=== PATIENT | male | born 1960 | race American Indian/Alaskan Native ===

== ENCOUNTER 2019-09-30 17:55 | Emergency (ER) | payer SELFPAY ==
--- NOTE | 2019-09-30 18:44 | Emergency Department Report ---
ED Syncope HPI - General Chief Complaint: Syncope Stated Complaint: SYNCOPAL EPISODE Time Seen by Provider: 09/30/19 18:34 - History of Present Illness Initial Comments: Patient is 58 years old male with history of hypertension. Patient brought to the emergency room via EMS for evaluation of one episode of syncope. Patient stated that he was standing when he felt lightheaded and then he fell landed on his left side. Patient is complaining of left hip pain. Patient denied any chest pain or shortness of breath. He also denied any headache, neck pain, weakness numbness or tingling sensation. Patient stated that his syncope resolved now. Patient found to have a blood pressure of 182/108. Patient stated that he is out of his blood pressure medication which is amlodipine 10 mg. Timing/Prior Episodes: no prior history, single episode today Precipitating Factors: Positive: lightheadedness Context: standing Loss of Consciousness: no loss of consciousness Current Symptoms: back to normal - Related Data Allergies/Adverse Reactions: Allergies No Known Allergies Allergy (Unverified 09/30/19 18:26) Home Medications: Ambulatory Orders hydroCHLOROthiazide [Hydrochlorothiazide] 10 mg PO DAILY 09/30/19 ED Review of Systems ROS: Stated complaint: SYNCOPAL EPISODE Other details as noted in HPI Comment: All other systems reviewed and negative Constitutional: denies: chills, fever Respiratory: denies: cough, shortness of breath, SOB with exertion Cardiovascular: denies: chest pain, palpitations Gastrointestinal: denies: abdominal pain, nausea, vomiting, diarrhea, constipation, hematemesis, melena, hematochezia Musculoskeletal: denies: back pain Neurological: vertigo. denies: headache, weakness, numbness, paresthesias, confusion, abnormal gait ED Past Medical Hx - Past Medical History Previous Medical History?: Yes Hx Hypertension: Yes - Surgical History Past Surgical History?: No - Social History Smoking Status: Current Every Day Smoker Substance Use Type: None - Medications Home Medications: Home Medications Medication Instructions Recorded Confirmed Last Taken Type hydroCHLOROthiazide 10 mg PO DAILY 09/30/19 09/30/19 Unknown History [Hydrochlorothiazide] ED Physical Exam - General Limitations: No Limitations General appearance: alert, in no apparent distress - Head Head exam: Present: atraumatic, normocephalic, normal inspection - Eye Eye exam: Present: normal appearance, PERRL - ENT ENT exam: Present: normal exam, normal orophraynx, mucous membranes moist - Neck Neck exam: Present: normal inspection, full ROM. Absent: tenderness, meningismus, lymphadenopathy, thyromegaly - Respiratory Respiratory exam: Present: normal lung sounds bilaterally - Cardiovascular Cardiovascular Exam: Present: regular rate, normal rhythm, normal heart sounds - GI/Abdominal GI/Abdominal exam: Present: soft, normal bowel sounds. Absent: distended, tenderness, guarding, rebound, rigid, organomegaly, mass, bruit, pulsatile mass, hernia - Extremities Exam Extremities exam: Present: normal inspection, full ROM, tenderness (Left hip tenderness.), normal capillary refill. Absent: pedal edema, joint swelling, calf tenderness - Back Exam Back exam: Present: normal inspection, full ROM. Absent: CVA tenderness (R), CVA tenderness (L), muscle spasm - Neurological Exam Neurological exam: Present: alert, oriented X3, CN II-XII intact, reflexes normal. Absent: motor sensory deficit - Psychiatric Psychiatric exam: Present: normal mood - Skin Skin exam: Present: warm, intact, normal color ED Course Vital Signs 09/30/19 09/30/19 18:22 19:24 Temperature 98.7 F 98.2 F Pulse Rate 96 H 74 Respiratory 20 16 Rate Blood Pressure 182/108 Blood Pressure 132/84 [Left] O2 Sat by Pulse 98 98 Oximetry ED Medical Decision Making - Lab Data Result diagrams: 09/30/19 18:43 09/30/19 18:43 - EKG Data -: EKG Interpreted by [place] EKG shows normal: sinus rhythm Rate: normal - EKG Data Interpretation: no acute changes - Radiology Data Radiology results: report reviewed - Medical Decision Making Patient is 58 years old male with history of hypertension. Patient brought to the emergency room via EMS for evaluation of one episode of syncope. Patient stated that he was standing when he felt lightheaded and then he fell landed on his left side. Patient is complaining of left hip pain. Patient denied any chest pain or shortness of breath. He also denied any headache, neck pain, weakness numbness or tingling sensation. Patient stated that his syncope resolved now. Patient found to have a blood pressure of 182/108. Patient stated that he is out of his blood pressure medication which is amlodipine 10 mg. Patient remained stable. Labs reviewed and is unremarkable. CT brain is negative for acute finding. Left hip x-ray showed advanced degenerative disease. Patient given morphine and Zofran in the ER. Patient symptoms improved. Patient advised to follow-up with orthopedics, Dr. Cui in the next 2 to 3 days for further management. Critical care attestation.: If time is entered above; I have spent that time in minutes in the direct care of this critically ill patient, excluding procedure time. ED Disposition Clinical Impression: Syncope, Left hip pain, Hypertension Disposition: TO HOME OR SELFCARE Is pt being admited?: No Condition: Stable Instructions: Syncope (ED), Hypertension (ED), Osteoarthritis (ED) Referrals: PRIMARY CAREMD [Primary Care Provider] - 3-5 Days ALEISHA CUI MD [Staff Physician] - 3-5 Days
[2019-09-30 18:59] LABS: Basophils % (Auto) 0.6 % (0.0-1.8); Eosinophils # (Auto) 0.1 K/mm3 (0.0-0.4); Eosinophils % (Auto) 1.7 % (0.0-4.3); Hematocrit 43.1 % (35.5-45.6); Hemoglobin 14.6 gm/dl (11.8-15.2); Lymphocytes # (Auto) 1.2 K/mm3 (1.2-5.4); Lymphocytes % (Auto) 18.2 % (13.4-35.0); Mean Corpuscular HGB Conc 34 % (32-34); Mean Corpuscular Volume 84 fl (84-94); Monocytes # (Auto) 0.5 K/mm3 (0.0-0.8); Platelet Count 142 K/mm3 (140-440); Red Blood Count 5.14 M/mm3 (3.65-5.03); Red Cell Distribution Width 15.1 % (13.2-15.2)
[2019-09-30 19:20] LABS: Alanine Aminotransferase 14 units/L (7-56); Albumin 4.4 g/dL (3.9-5); BUN/Creatinine Ratio 13; Blood Urea Nitrogen 12 mg/dL (9-20); Calcium 9.1 mg/dL (8.4-10.2); Hemolysis Index 7
--- NOTE | 2019-09-30 19:24 | XRay Report ---
LEFT HIP 2 VIEWS INDICATION / CLINICAL INFORMATION: Left hip pain. COMPARISON: None available. FINDINGS: BONES / JOINT(S): There are advanced degenerative changes involving the left hip, more prominent supe riorly. There are also moderately advanced degenerative changes involving the right hip. I see no marisol dence of fracture, dislocation or destructive lesion. There are moderate degenerative changes in the lower lumbar spine. SOFT TISSUES: No significant abnormality. ADDITIONAL FINDINGS: None. IMPRESSION: Advanced degenerative changes involving the left hip with moderately advanced degenerativ e changes involving the right hip. Moderate lower lumbar spondylosis. Signer Name: Tariq Naranjo MD Signed: 09/30/2019 7:19 PM Workstation Name: [id number]
--- NOTE | 2019-09-30 20:08 | Cat Scan Report ---
CT head/brain wo con INDICATION / CLINICAL INFORMATION: 58 years Male; Syncope. TECHNIQUE: Routine CT head without contrast. All CT scans at this location are performed using CT dos e reduction for ALARA by means of automated exposure control. COMPARISON: None. FINDINGS: BRAIN / INTRACRANIAL CONTENTS: The brain appears to demonstrate appropriate attenuation for age. The ventricular system is within normal limits in size and configuration. There is no clear CT evidence o f acute intracranial hemorrhage or significant mass effect. ORBITS: No significant abnormality of visualized orbits. SINUSES / MASTOIDS: No significant abnormality the visualized paranasal sinuses or mastoid air cells. CRANIOCERVICAL JUNCTION: No significant abnormality. ADDITIONAL FINDINGS: None. IMPRESSION: 1. The CT the brain appears unremarkable for age without evidence of acute intracranial hemorrhage. Signer Name: Lavelle Rodriguez MD Signed: 09/30/2019 8:04 PM Workstation Name: [id number]
[2019-09-30] MEDS ORDERED: MORPHINE 4 MG/1 ML INJ IM ONE (20:39)
[2019-09-30] MEDS ORDERED: ONDANSETRON 4 MG/2 ML INJ IM ONE (20:39)
[2019-09-30] MEDS ORDERED: MORPHINE 4 MG/1 ML INJ ONE (20:41)
[2019-09-30] MEDS ORDERED: ONDANSETRON 4 MG/2 ML INJ ONE (20:41)
[2019-09-30 20:58] VITALS: BP 162/96
== END 2019-09-30 21:39 | disposition home or self-care (01) ==
LOC: ED 17:55
DX: R55 Syncope and collapse (principal); M25.552 Pain in left hip; I10 Essential (primary) hypertension; F17.200 Nicotine dependence, unspecified, uncomplicated; Z79.899 Other long term (current) drug therapy
CPT/HCPCS: 36415; 70450; 73502; 80053; 84484; 85025; 93005; 96372; 99285; J2270; J2405

== ENCOUNTER 2020-07-07 11:27 | Outpatient (CLI) | payer OTHER ==
[2020-07-07 12:11] LABS: Basophils # (Auto) 0.1 K/mm3 (0.0-0.1); Basophils % (Auto) 0.8 % (0.0-1.8); Eosinophils # (Auto) 0.2 K/mm3 (0.0-0.4); Eosinophils % (Auto) 2.4 % (0.0-4.3); Hematocrit 44.8 % (35.5-45.6); Hemoglobin 15.8 gm/dl (11.8-15.2); Lymphocytes # (Auto) 2.4 K/mm3 (1.2-5.4); Lymphocytes % (Auto) 30.2 % (13.4-35.0); Mean Corpuscular HGB Conc 35 % (32-34); Mean Corpuscular Volume 85 fl (84-94); Monocytes # (Auto) 0.6 K/mm3 (0.0-0.8); Monocytes % (Auto) 7.8 % (0.0-7.3); Platelet Count 168 K/mm3 (140-440); Red Cell Distribution Width 15.3 % (13.2-15.2)
[2020-07-07 12:34] LABS: Alanine Aminotransferase 15 units/L (7-56); Albumin 4.8 g/dL (3.9-5); BUN/Creatinine Ratio 15; Blood Urea Nitrogen 20 mg/dL (9-20); Calcium 9.5 mg/dL (8.4-10.2); Chol/HDL Ratio 4.52 %; HDL Cholesterol 38 mg/dL (40-59); Hemolysis Index 5; LDL Cholesterol,Direct 123 mg/dL (50-130)
== END 2020-07-07 11:28 | disposition home or self-care (01) ==
LOC: LAB 11:27
PROVIDERS: ATTEND Internal Medicine
DX: Z00.00 Encounter for general adult medical examination without abnormal findings (principal); Z13.220 Encounter for screening for lipoid disorders; Z13.1 Encounter for screening for diabetes mellitus; Z13.29 Encounter for screening for other suspected endocrine disorder; E55.9 Vitamin D deficiency, unspecified; R39.11 Hesitancy of micturition
CPT/HCPCS: 36415; 80053; 80061; 82306; 83036; 84153; 84443; 85025

== ENCOUNTER 2020-11-23 13:06 | Outpatient (CLI) | payer OTHER ==
--- NOTE | 2020-11-23 15:13 | XRay Report ---
BILATERAL KNEE 1 VIEW(S) INDICATION / CLINICAL INFORMATION: PAIN IN UNSPECIFIED KNEE COMPARISON: None available. FINDINGS: BONES / JOINT(S): No acute fracture or subluxation. 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 SOFT TISSUES: No significant abnormality. ADDITIONAL FINDINGS: None. Signer Name: Raúl Mckenzie MD Signed: 11/23/2020 3:09 PM Workstation Name: [id number]
== END 2020-11-23 13:07 | disposition home or self-care (01) ==
LOC: XRAY 13:06
PROVIDERS: ATTEND Orthopaedic Surgery
DX: M17.0 Bilateral primary osteoarthritis of knee (principal)
CPT/HCPCS: 73565

== ENCOUNTER 2021-01-11 10:33 | Outpatient (CLI) | payer OTHER ==
[2021-01-11 11:43] LABS: Chol/HDL Ratio 4.67 %
== END 2021-01-11 10:34 | disposition home or self-care (01) ==
LOC: LAB 10:33
PROVIDERS: ATTEND Internal Medicine
DX: R73.03 Prediabetes (principal); E66.9 Obesity, unspecified
CPT/HCPCS: 36415; 80061; 83036

== ENCOUNTER 2021-04-15 09:19 | Outpatient (CLI) | payer OTHER ==
--- NOTE | 2021-04-15 10:24 | XRay Report ---
PELVIS 1 VIEW(S) INDICATION / CLINICAL INFORMATION: M16.0 COMPARISON: 08/14/2020 FINDINGS: BONES / JOINT(S): No acute fracture or subluxation. Patient is status post left total hip arthroplast y. No hardware complication. There is severe degenerative joint disease of the right hip. There is al so degenerative facet and disc disease lower lumbar spine. SOFT TISSUES: No significant abnormality. ADDITIONAL FINDINGS: None. Signer Name: Jose Shetty DO Signed: 04/15/2021 10:19 AM Workstation Name: [id number]
== END 2021-04-15 09:20 | disposition home or self-care (01) ==
LOC: XRAY 09:19
PROVIDERS: ATTEND Orthopaedic Surgery
DX: M16.0 Bilateral primary osteoarthritis of hip (principal); M47.816 Spondylosis without myelopathy or radiculopathy, lumbar region
CPT/HCPCS: 72170

== ENCOUNTER 2021-05-06 10:59 | Outpatient (CLI) | payer OTHER ==
[2021-05-06 11:26] LABS: Basophils % (Auto) 0.6 % (0.0-1.8); Eosinophils # (Auto) 0.2 K/mm3 (0.0-0.4); Hematocrit 45.4 % (35.5-45.6); Hemoglobin 14.8 gm/dl (11.8-15.2); Lymphocytes # (Auto) 1.7 K/mm3 (1.2-5.4); Lymphocytes % (Auto) 28.3 % (13.4-35.0); Mean Corpuscular HGB Conc 33 % (32-34); Mean Corpuscular Volume 88 fl (84-94); Monocytes # (Auto) 0.3 K/mm3 (0.0-0.8); Monocytes % (Auto) 5.2 % (0.0-7.3); Platelet Count 131 K/mm3 (140-440); Red Blood Count 5.16 M/mm3 (3.65-5.03); Red Cell Distribution Width 15.4 % (13.2-15.2)
[2021-05-06 11:45] LABS: Alanine Aminotransferase 14 units/L (7-56); Albumin 4.1 g/dL (3.9-5); BUN/Creatinine Ratio 13; Blood Urea Nitrogen 14 mg/dL (9-20); Hemolysis Index 5
== END 2021-05-06 11:00 | disposition home or self-care (01) ==
LOC: LAB 10:59
PROVIDERS: ATTEND Internal Medicine
DX: Z01.810 Encounter for preprocedural cardiovascular examination (principal); R73.03 Prediabetes
CPT/HCPCS: 36415; 80053; 83036; 85025

== ENCOUNTER 2021-07-09 10:49 | Outpatient (CLI) | payer OTHER ==
[2021-07-09 11:27] LABS: Basophils % (Auto) 0.7 % (0.0-1.8); Eosinophils # (Auto) 0.2 K/mm3 (0.0-0.4); Eosinophils % (Auto) 2.9 % (0.0-4.3); Hematocrit 42.2 % (35.5-45.6); Hemoglobin 13.7 gm/dl (11.8-15.2); Lymphocytes # (Auto) 2.1 K/mm3 (1.2-5.4); Lymphocytes % (Auto) 29.8 % (13.4-35.0); Mean Corpuscular HGB Conc 33 % (32-34); Mean Corpuscular Volume 86 fl (84-94); Monocytes # (Auto) 0.5 K/mm3 (0.0-0.8); Monocytes % (Auto) 7.4 % (0.0-7.3); Platelet Count 179 K/mm3 (140-440); Red Blood Count 4.93 M/mm3 (3.65-5.03); Red Cell Distribution Width 15.7 % (13.2-15.2)
[2021-07-09 11:42] LABS: Alanine Aminotransferase 16 units/L (7-56); Albumin 4.5 g/dL (3.9-5); BUN/Creatinine Ratio 12; Blood Urea Nitrogen 15 mg/dL (9-20); Calcium 9.1 mg/dL (8.4-10.2); HDL Cholesterol 40 mg/dL (40-59); Hemolysis Index 8; LDL Cholesterol,Direct 122 mg/dL (50-130)
== END 2021-07-09 10:50 | disposition home or self-care (01) ==
LOC: LAB 10:49
PROVIDERS: ATTEND Internal Medicine
DX: Z00.00 Encounter for general adult medical examination without abnormal findings (principal); R73.03 Prediabetes; E78.5 Hyperlipidemia, unspecified; E55.9 Vitamin D deficiency, unspecified; R39.11 Hesitancy of micturition; R53.83 Other fatigue
CPT/HCPCS: 36415; 80053; 80061; 83036; 84153; 84443; 85025

== ENCOUNTER 2021-11-25 10:58 | Outpatient (CLI) | payer OTHER ==
--- NOTE | 2021-11-25 12:48 | XRay Report ---
XR pelvis 1-2V INDICATION: PAIN IN RIGHT HIP. COMPARISON: None available. FINDINGS: Previous bilateral hip arthroplasty without periprosthetic fracture or loosening. No acute findings. Signer Name: Guanako Bucio MD Signed: 11/25/2021 12:43 PM Workstation Name: [id number]
--- NOTE | 2021-11-25 12:49 | XRay Report ---
XR hip 2-3V RT INDICATION: PAIN IN RIGHT HIP. COMPARISON: None available. FINDINGS: Previous right hip arthroplasty. No periprosthetic fracture or loosening. No acute findings. Signer Name: Guanako Bucio MD Signed: 11/25/2021 12:44 PM Workstation Name: [email or web address] [id number]
== END 2021-11-25 10:59 | disposition home or self-care (01) ==
LOC: XRAY 10:58
PROVIDERS: ATTEND Orthopaedic Surgery
DX: M16.11 Unilateral primary osteoarthritis, right hip (principal); Z96.641 Presence of right artificial hip joint
CPT/HCPCS: 72170

== ENCOUNTER 2022-01-18 09:01 | Outpatient (CLI) | payer OTHER | END 2022-01-18 09:02 | disposition home or self-care (01) | LOC: LAB 09:01 | PROVIDERS: ATTEND Internal Medicine | DX: R73.03 Prediabetes (principal) | CPT/HCPCS: 36415; 83036 ==